=== PATIENT | male | born 1965 | race Caucasian/White ===

== ENCOUNTER 2017-07-09 08:31 | Day surgery (SDC) | payer BC ==
[2017-07-08 09:51] VITALS: BMI 19.3
[2017-07-09 09:37] LABS: Hemoglobin 11.6 g/dL (14.0-18.0); Mean Corpuscular HGB CONC 33.9 g/dL (32.0-36.0); Mean Corpuscular Hemoglobin 30.8 pg (27.0-31.0); Mean Corpuscular Volume 90.8 fl (80.0-94.0); Mean Platelet Volume 5.6 fL (7.4-10.4); Platelet Count 225 thou/uL (130-400); RBC Distribution Width 12.2 % (11.5-14.5); Red Blood Cell (RBC) Count 3.77 mill/uL (4.70-6.10); White Blood Cell (WBC) Count 3.7 thou/uL (4.8-10.8)
[2017-07-09] MEDS ORDERED: cefTRIAXone\\ROCEPHIN 2 GM in Sodium Chloride 0.9% 100 ML IVPB SCH (09:45)
[2017-07-09 09:50] LABS: Anion Gap 10 mmol/L (10-20); BUN (Urea Nitrogen) 19 mg/dL (8.4-25.7); Calc. Creatinine Clearance 41 mL/min (70-130); Calcium 9.5 mg/dL (7.8-10.44); Carbon Dioxide 26 mmol/L (22-29); Chloride 103 mmol/L (98-107); Estimated GFR-MDRD 43; Glucose 91 mg/dL (70-105); Potassium 3.8 mmol/L (3.5-5.1); Sodium 135 mmol/L (136-145)
[2017-07-09 09:52] LABS: INR-International Normal Ratio 1.1; PTT 29.1 SEC (22.9-36.1); Prothrombin Time 14.1 SEC (12.0-14.7)
[2017-07-09] MEDS ORDERED: Hydrocortisone Sod Succ/PF 100 mg/2 ml Vial ONE (10:02)
--- NOTE | 2017-07-09 10:59 | RAD ---
ABDOMEN 1 VIEW: Date: 07/09/17 HISTORY: Preop. FINDINGS/IMPRESSION: Bowel gas pattern is nonspecific. Metallic clips overlie the gallbladder fossa. Metallic filter overl ies the inferior vena cava. Rounded densities project over the right lower quadrant and left upper quadrant. Favored to be bowel content, outside of the course of each urinary system. No urinary tract calcifications are reliably demonstrated on this exam. POS: [facility]
[2017-07-09] MEDS ORDERED: Fentanyl 100 MCG/2 ML VIAL ONE ×2 (11:20→14:47)
[2017-07-09] MEDS ORDERED: Midazolam HCl 2 mg/2 ml Vial ONE (11:20)
[2017-07-09] MEDS ORDERED: Iothalamate Meglumine 60% 50 ML VIAL FS ONE (11:22)
[2017-07-09] MEDS ORDERED: Lidocaine 1% PF 5 ML VIAL ONE (12:19)
[2017-07-09] MEDS ORDERED: PHENYLEPHRINE-NS 100 MCG/ML 10 ML SYRINGE ONE (12:19)
[2017-07-09] MEDS ORDERED: ePHEDrine/0.9% NaCl/PF SYRINGE 50 mg/10 ml ONE (12:19)
[2017-07-09] MEDS ORDERED: PROPOFOL 200 MG/20 ML VIAL ONE (12:19)
[2017-07-09] MEDS ORDERED: Furosemide 20 MG/2 ML VIAL ONE (13:33)
--- NOTE | 2017-07-09 21:07 | OP ---
DATE OF PROCEDURE: 07/09/2017 PREOPERATIVE DIAGNOSES: Right ureteral stones and right renal stones. POSTOPERATIVE DIAGNOSES: Right ureteral stones and right renal stones. PROCEDURES PERFORMED: Cystoscopy, right retrograde, right extracorporeal shock wave lithotripsy of p roximal ureteral stone and right extracorporeal shock wave lithotripsy of distal ureteral stone. SURGEON: Jaswinder Esquivel M.D. ANESTHETIC: General. ESTIMATED BLOOD LOSS: Not recorded. FINDINGS: The patient has no evidence of stricture disease. He has mild lateral lobe hypertrophy wi th an elevated bladder neck and some median lobe. He had 2 ureteral orifices. He had too numerous t o count small bladder calculi are yellow probably oliguric acid. Retrograde study showed that he sti ll had 2 ureteral stones, one in the distal ureter and one in the proximal ureter. These were seen a bout a week ago on a CAT scan at [facility]. He also had multiple filling defects in the right ki dney consistent with other small intrarenal stones. None of these were visualized without the use of contrast making him all suspicious for uric acid stones. We treated the proximal stone with a 2000 shocks at level 4. We treated the distal stone with 2500 shocks at a combination of level 4 and then the last 500 at level 5. At the end of this procedure, he was rescanned and the retrograde study wa s repeated and it appeared that both of the areas were opened and the urine was easily clearing by th is and effluxing out into the bladder. He had numerous fragments that are actually appeared not to b e crushed stone fragments, not the round stones that were typical of the bladder once, but in additio n to that, once it appeared to be fragments are probably the ones that were in his ureters. For this reason, a stent was not placed. OPERATIVE TECHNIQUE: Obtained written verbal consent from the patient after receiving IV Rocephin, a fter documenting normal preoperative blood work including a platelet function assay, he was taken to the operating suite. He was placed in the supine position on the treatment table. PlexiPulses were placed on his lower extremities and turned on. He was given a general anesthetic and obturator intub ation. He was then placed in the dorsal lithotomy position and sterilely prepped and draped. The C- arm was brought in. Cystoscopy was performed with a 22-Niuean sheath. This was well lubricated and passed under direct vision through the male urethra and into the urinary bladder with the aid of a 30 -degree lens and video camera and monitor. The findings are as above. A 5 Niuean Pollack catheter w as flushed with contrast and placed just into the right ureteral orifice. Contrast was injected in a retrograde manner. The distal ureter tapered down and this is small little area of narrowing and fi lling defect and then a dilated ureter proximal to this all the way up until we got to the UPJ area, where there was another area of narrowing with a small little filling defect and he had some some int rarenal filling defects. We went ahead and filled them up with contrast, so that the ureter would ea sily be seen and then keeping the ureteral stent about care home up his ureter. We removed the scope, leaving the stent in place coming out of the meatus keeping that sterile and hooked up to contrast fo r injection. We then returned to the supine position. He was then coupled to the lithotripsy unit a nd the proximal stone was placed in treatment focal point, shockwave therapy was commenced. Fluorosc opy was used intermittently to document positioning as necessary. After 2000 shocks, it appeared the contrast easily going by this point. He was then repositioned to treat the distal area. Because he had a lot of contrast in his bladder, we sterilely placed a Wise catheter and drained his bladder a fter injecting and filling up the entire ureter with contrast again and removing our Pollack catheter . We then went ahead and coupled him to the lithotripsy unit and placed in treatment focal point the area of the distal stone, this was treated with 2500 shocks. At this point, he was returned back to the dorsal lithotomy and reprepped and draped and a repeat cystoscopy was done. We drained out some clots and some bloody urine and then we shot some more contrast up the right ureter filling it out c ompletely and filling out the proximal collecting system and then watch if this effluxed out without any difficulty at all. The patient was given some Lasix during the procedure 10 mg when we are about 10-15 minutes from being done with the procedure, which helped also being sure that he was effluxing adequately out the right ureter was and for this reason, a stent was not placed. Instead, the bladd er straining instruments were removed. He was taken out of dorsal lithotomy position, awakened, extu bated, and taken by stretcher back to recovery room.
== END 2017-07-09 17:00 | disposition home or self-care (01) ==
LOC: SDC 08:31
PROVIDERS: ATTEND Urology
PROC: 0TF6XZZ Fragmentation in Right Ureter, External Approach (ICD-10-PCS; principal; 2017-07-09)
PROC: BT1D1ZZ Fluoroscopy of Right Kidney, Ureter and Bladder using Low Osmolar Contrast (ICD-10-PCS; principal; 2017-07-09)
DX: N20.1 Calculus of ureter (principal); N20.0 Calculus of kidney; N21.0 Calculus in bladder; J84.10 Pulmonary fibrosis, unspecified; I10 Essential (primary) hypertension; E78.00 Pure hypercholesterolemia, unspecified; F32.9 Major depressive disorder, single episode, unspecified; Z79.891 Long term (current) use of opiate analgesic; Z79.52 Long term (current) use of systemic steroids; Z79.51 Long term (current) use of inhaled steroids; Z79.899 Other long term (current) drug therapy; Z88.8 Allergy status to other drugs, medicaments and biological substances
CPT/HCPCS: 36415; 74018; 80048; 85027; 85576; 85610; 85730; C1758; J0696; J1720; J1940; J2250; J3010; J7050; Q9961

== ENCOUNTER 2021-08-02 19:00 | Outpatient (CLI) | payer BC | END 2021-08-02 19:01 | disposition home or self-care (01) | LOC: SLEEPLAB 19:00 | PROVIDERS: ATTEND Internal Medicine Pulmonary Disease | DX: G47.33 Obstructive sleep apnea (adult) (pediatric) (principal); K21.9 Gastro-esophageal reflux disease without esophagitis; I10 Essential (primary) hypertension; F41.9 Anxiety disorder, unspecified | CPT/HCPCS: 95810 ==

== ENCOUNTER 2021-10-09 19:00 | Outpatient (CLI) | payer BC | END 2021-10-09 19:01 | disposition home or self-care (01) | LOC: SLEEPLAB 19:00 | PROVIDERS: ATTEND Internal Medicine Pulmonary Disease | DX: G47.33 Obstructive sleep apnea (adult) (pediatric) (principal); K21.9 Gastro-esophageal reflux disease without esophagitis; F41.9 Anxiety disorder, unspecified; I10 Essential (primary) hypertension; R06.83 Snoring; G47.10 Hypersomnia, unspecified; E66.9 Obesity, unspecified; Z68.27 Body mass index [BMI] 27.0-27.9, adult | CPT/HCPCS: 95811 ==